=== PATIENT | male | born 1985 | race Caucasian/White ===

== ENCOUNTER 2021-07-06 08:28 | Emergency (ER) | payer SELFPAY ==
--- NOTE | 2021-07-06 09:18 | RAD REPORT ---
EXAM DESCRIPTION: CT - Head Brain Wo Cont - 07/06/2021 9:05 am CLINICAL HISTORY: SYNCOPE COMPARISON: No comparisons TECHNIQUE: All CT scans are performed using dose optimization technique as appropriate and may inclu de automated exposure control or mA/KV adjustment according to patient size. FINDINGS: No intracranial hemorrhage, hydrocephalus or extra-axial fluid collection.No areas of brai n edema or evidence of midline shift. The paranasal sinuses and mastoids are clear. The calvarium is intact. IMPRESSION: No acute intracranial abnormality.
--- NOTE | 2021-07-06 09:28 | RAD REPORT ---
EXAM DESCRIPTION: RAD - Chest Single View - 07/06/2021 9:22 am CLINICAL HISTORY: CHEST PAIN COMPARISON: No comparisons FINDINGS: Lines: None. Lungs: No evidence of edema or pneumonia. Pleural: No significant pleural effusions or pneumothorax. Cardiac: The heart size is within normal limits. Bones: No acute fractures. Other: IMPRESSION: No acute cardiopulmonary disease.
[2021-07-06 09:49] LABS: Absolute Lymphocytes (CBC) 1.7 K/uL (0.7-4.9); Basophils % 0.5 % (0-1.3); Hematocrit 50.4 % (39.6-49.0); Lymphocytes % 17.9 % (15.3-44.8); MPV 7.9 fL (7.6-11.3); RBC Red Blood Cell Count 5.61 M/uL (4.33-5.43)
[2021-07-06 10:02] LABS: Protime INR 1.15
[2021-07-06 10:05] LABS: ALT/SGPT 83 U/L (12-78); AST/SGOT 39 U/L (15-37); Albumin 4.4 g/dL (3.4-5.0); Alkaline Phosphatase 65 U/L (45-117); BUN Blood Urea Nitrogen 10 mg/dL (7-18); Bicarbonate 27 mmol/L (21-32); Bilirubin Direct 0.3 mg/dL (0-0.2); Glucose Level 74 mg/dL (74-106); Magnesium 2.1 mg/dL (1.8-2.4); Potassium 3.3 mmol/L (3.5-5.1); Protein, Total 7.8 g/dL (6.4-8.2); Sodium Level 140 mmol/L (136-145); Troponin (Emerg Dept Use Only) < 0.02 ng/mL (0.0-0.045)
[2021-07-06 10:06] LABS: NT PRO-BNP < 5 pg/mL (<125)
[2021-07-06 10:13] LABS: Urine Blood 1+ (Negative); Urine Glucose Negative (Negative); Urine Protein 3+ (Negative); Urine Specific Gravity >=1.030 (1.005-1.030); Urine pH 6.5 (5.0-7.0)
--- NOTE | 2021-07-06 10:24 | EDPHYS ---
Physician Documentation [facility] Name: Sekou Hyatt Age: 35 yrs Sex: Male : 1985 Arrival Date: 07/06/2021 Time: 08:29 Bed 7 Private MD: ED Physician Obdulia Allen HPI: 07/06 08:51 This 35 yrs old Male presents to ER via EMS with complaints of Syncope. sp3 08:51 35-year-old male with no significant past medical history presents with a syncopal sp3 episode x1 at work today. 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 Patient has no recollection of the incident. Weather outside was cool and patient was not in the heat exhaustion scenario. He does say that he had mild chest pain prior to the event and is the only symptom he has. There was no reported seizure activity, altered mental status, shortness of breath, fever, abdominal pain, nausea, vomiting, diarrhea, decreased food, sick contacts, URI symptoms, numbness, tingling, weakness, any other ROS at this time. Remainder of ROS is negative.. Historical: - Allergies: 08:31 No Known Allergies; bp - Home Meds: 08:31 None [Active]; bp - PMHx: 08:31 Hypertensive disorder; bp - Immunization history:: Adult Immunizations up to date. - Social history:: Smoking status: Patient denies any tobacco usage or history of. ROS: 08:53 Constitutional: Negative for fever, chills, and weight loss, Eyes: Negative for injury, sp3 pain, redness, and discharge, ENT: Negative for injury, pain, and discharge, Neck: Negative for injury, pain, and swelling, Respiratory: Negative for shortness of breath, cough, wheezing, and pleuritic chest pain, Abdomen/GI: Negative for abdominal pain, nausea, vomiting, diarrhea, and constipation, Back: Negative for injury and pain, Skin: Negative for injury, rash, and discoloration, Neuro: Negative for headache, weakness, numbness, tingling, and seizure, Psych: Negative for depression, anxiety, suicide ideation, homicidal ideation, and hallucinations, Allergy/Immunology: Negative for hives, rash, and allergies, Endocrine: Negative for neck swelling, polydipsia, polyuria, polyphagia, and marked weight changes, Hematologic/Lymphatic: Negative for swollen nodes, abnormal bleeding, and unusual bruising. 08:53 All other systems are negative. Exam: 08:53 Constitutional: This is a well developed, well nourished patient who is awake, alert, sp3 and in no acute distress. Head/Face: Normocephalic, atraumatic. Eyes: Pupils equal round and reactive to light, extra-ocular motions intact. Lids and lashes normal. Conjunctiva and sclera are non-icteric and not injected. Cornea within normal limits. Periorbital areas with no swelling, redness, or edema. ENT: Nares patent. No nasal discharge, no septal abnormalities noted. External auditory canals are clear. Oropharynx with no redness, swelling, or masses, exudates, or evidence of obstruction, uvula midline. Mucous membranes moist. Neck: Trachea midline, no thyromegaly or masses palpated, and no cervical lymphadenopathy. Supple, full range of motion without nuchal rigidity, or vertebral point tenderness. No Meningismus. Chest/axilla: Normal chest wall appearance and motion. Nontender with no deformity. No lesions are appreciated. Respiratory: Lungs have equal breath sounds bilaterally, clear to auscultation and percussion. No rales, rhonchi or wheezes noted. No increased work of breathing, no retractions or nasal flaring. Abdomen/GI: Soft, non-tender, with normal bowel sounds. No distension or tympany. No guarding or rebound. No evidence of tenderness throughout. Back: No spinal tenderness. No costovertebral tenderness. Full range of motion. Skin: Warm, dry with normal turgor. Normal color with no rashes, no lesions, and no evidence of cellulitis. MS/ Extremity: Pulses equal, no cyanosis. Neurovascular intact. Full, normal range of motion. Neuro: Awake and alert, GCS 15, oriented to person, place, time, and situation. Cranial nerves II-XII grossly intact. Motor strength 5/5 in all extremities. Sensory grossly intact. Cerebellar exam normal. Normal gait. Psych: Awake, alert, with orientation to person, place and time. Behavior, mood, and affect are within normal limits. 08:53 Cardiovascular: Exam negative for acute changes, arrhythmia, bradycardia, murmur, pulse deficit, Rate: tachycardic, Rhythm: regular, Pulses: no pulse deficits are appreciated. 08:55 ECG was reviewed by the Attending Physician. EKG represents normal sinus rhythm at 100 sp3 bpm with borderline QTC at 503 and S wave in the septal leads. [place] is mildly rightward. Vital Signs: 08:29 BP 156 / 113; Pulse 108; Resp 14; Temp 98.6; Pulse Ox 99% ; Weight 127.01 kg; Height 6 bp ft. 1 in. (185.42 cm); 09:38 BP 141 / 91; Pulse 105; Resp 17; Pulse Ox 99% ; bp 11:14 BP 156 / 98; Pulse 97; Resp 16; Temp 98.5; Pulse Ox 99% ; bp 08:29 Body Mass Index 36.94 (127.01 kg, 185.42 cm) bp MDM: 08:41 Patient medically screened. sp3 08:54 Data reviewed: vital signs, nurses notes. ED course: 35-year-old with syncope. sp3 Differential includes vasovagal episode, cardiac arrhythmia, seizure, neurological pathology, pulmonary embolism (low pretest probability), or trauma. Will obtain CT scan of the head, EKG, laboratory values, and observation. Patient's blood pressure is elevated although he states that he is anxious about being in the hospital. Will follow clinically and not treat at this time until data is acquired.. 10:21 ED course: CT scan and chest x-ray are normal labs are normal with exception of mildly sp3 low potassium which we will orally replenished. LFTs are mildly elevated secondary to likely alcohol use. 4+ ketones in the urine are present therefore likely dehydration as a cause of patient's syncope. Patient has received 1 L normal saline and vital signs are normal. 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 I also told patient he will need a follow-up EKG given his borderline QTC and told him that he should discuss all these things with his primary care physician. He states he does have one but has not seen him in "a long time". Patient will be discharged at this time with the precautions after mentioned. Patient understands if he feels like he is going to pass out again he will need to seek immediate medical treatment and avoid any further work until he is seen.. 07/06 08:50 Order name: Basic Metabolic Panel; Complete Time: 10:20 sp3 07/06 08:50 Order name: CBC with Diff; Complete Time: 10:20 3 07/06 08:50 Order name: LFT's; Complete Time: 10:20 3 07/06 08:50 Order name: Magnesium; Complete Time: 10:20 3 07/06 08:50 Order name: NT PRO-BNP; Complete Time: 10:20 3 07/06 08:50 Order name: PT-INR; Complete Time: 10:20 3 07/06 08:50 Order name: Troponin (emerg Dept Use Only); Complete Time: 10:20 3 07/06 08:50 Order name: XRAY Chest (1 view); Complete Time: 10:20 3 07/06 08:50 Order name: EKG; Complete Time: 08:51 07/06 08:50 Order name: CT Head Brain wo Cont; Complete Time: 10:20 3 07/06 08:57 Order name: D-Dimer 07/06 08:57 Order name: Urine Drug Screen 07/06 10:13 Order name: Urine Dipstick-Ancillary; Complete Time: 10:20 EDMS 07/06 08:50 Order name: Cardiac monitoring; Complete Time: 08:52 07/06 08:50 Order name: EKG - Nurse/Tech; Complete Time: 08:52 07/06 08:50 Order name: IV Saline Lock; Complete Time: 08:52 07/06 08:50 Order name: Labs collected and sent; Complete Time: 08:52 07/06 08:50 Order name: O2 Per Protocol; Complete Time: 08:52 07/06 08:50 Order name: O2 Sat Monitoring; Complete Time: 08:52 07/06 08:58 Order name: Urine Dipstick-Ancillary (obtain specimen); Complete Time: 10:12 3 07/06 09:12 Order name: Labs - recollect needed: recollect all labs; Complete Time: 09:40 bd Administered Medications: 10:30 Drug: Potassium Chloride 40 mEq Route: PO; bp 10:40 Follow up: Response: No adverse reaction bp Point of Care Testing: Blood Glucose: 08:31 Blood Glucose: 78 mg/dL; bp Ranges: Critical Glucose Levels:Adult <50 mg/dl or >400 mg/dl <40 mg/dl or >180 mg/dl Disposition Summary: 07/06/21 10:23 Discharge Ordered Location: Home sp3 Condition: Stable sp3 Diagnosis - Syncope Near sp3 - Dehydration sp3 Followup: sp3 - With: Private Physician - When: As needed - Reason: Discharge Instructions: - Discharge Summary Sheet sp3 - Dehydration, Adult sp3 - Syncope sp3 Forms: - Medication Reconciliation Form sp3 - Thank You Letter sp3 - Antibiotic Education sp3 - Prescription Opioid Use sp3 Signatures: Dispatcher [employer] EDMS Roxana Banks Brian, RN RN Obdulia Jaramillo MD MD sp3 Corrections: (The following items were deleted from the chart) 08:57 08:54 ED course: 35-year-old with syncope. Differential includes vasovagal episode, sp3 cardiac arrhythmia, seizure, neurological pathology, or trauma. Will obtain CT scan of the head, EKG, laboratory values, and observation. Patient's blood pressure is elevated although he states that he is anxious about being in the hospital. Will follow clinically and not treat at this time until data is acquired.. sp3 10:29 10:21 ED course: CT scan and chest x-ray are normal labs are normal with exception of sp3 mildly low potassium which we will orally replenished. LFTs are mildly elevated secondary to likely alcohol use. 4+ ketones in the urine are present therefore likely dehydration as a cause of patient's syncope. Patient has received 1 L normal saline and vital signs are normal. 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 Patient will be discharged at this time.. sp3
--- NOTE | 2021-07-06 10:24 | ER ---
Nurse's Notes [facility] Name: Sekou Hyatt Age: 35 yrs Sex: Male : 1985 Arrival Date: 07/06/2021 Time: 08:29 Bed 7 Private MD: Diagnosis: Syncope Near;Dehydration Presentation: 07/06 08:29 Chief complaint: EMS states: SYNCOPE, FOUND DOWN IN CHANGE ROOM. Coronavirus screen: At bp this time, the client does not indicate any symptoms associated with coronavirus-19. Ebola Screen: No symptoms or risks identified at this time. Initial Sepsis Screen: Does the patient meet any 2 criteria? HR > 90 bpm. No. Patient's initial sepsis screen is negative. Does the patient have a suspected source of infection? No. Patient's initial sepsis screen is negative. Risk Assessment: Do you want to hurt yourself or someone else? Patient reports no desire to harm self or others. Onset of symptoms was July 06, 2021 at 08:00. Care prior to arrival: IV initiated. 20 GA, in the left antecubital area, Glucose check: 78. 08:29 Method Of Arrival: EMS: [facility] bp 08:29 Acuity: CELSA 3 bp Triage Assessment: 08:31 General: Appears in no apparent distress. comfortable, Behavior is cooperative, bp appropriate for age, anxious. Pain: Denies pain. EENT: No deficits noted. Neuro: Level of Consciousness is awake, alert, obeys commands, Oriented to Appropriate for age. Neuro: Reports a syncopal episode. Cardiovascular: Patient's skin is warm and dry. Respiratory: No deficits noted. GI: No signs and/or symptoms were reported involving the gastrointestinal system. : No signs and/or symptoms were reported regarding the genitourinary system. Derm: No deficits noted. Musculoskeletal: No deficits noted. Historical: - Allergies: 08:31 No Known Allergies; bp - Home Meds: 08:31 None [Active]; bp - PMHx: 08:31 Hypertensive disorder; bp - Immunization history:: Adult Immunizations up to date. - Social history:: Smoking status: Patient denies any tobacco usage or history of. Screenin:38 Abuse screen: Denies threats or abuse. Denies injuries from another. Nutritional bp screening: No deficits noted. Tuberculosis screening: No symptoms or risk factors identified. Fall Risk None identified. Assessment: 08:35 General: SEE TRIAGE NOTE. Neuro: Level of Consciousness is awake, alert, obeys bp commands, Oriented to Appropriate for age. Cardiovascular: Rhythm is regular. 09:00 Reassessment: Patient appears in no apparent distress at this time. No changes from bp previously documented assessment. Patient and/or family updated on plan of care and expected duration. Pain level reassessed. Patient is alert, oriented x 3, equal unlabored respirations, skin warm/dry/pink. PT TO CT. 09:39 Reassessment: No changes from previously documented assessment. Patient and/or family bp updated on plan of care and expected duration. Pain level reassessed. Patient is alert, oriented x 3, equal unlabored respirations, skin warm/dry/pink. LABS REDRAWN. 11:13 Reassessment: PT D/C HOME AMBULATORY WITH FAMILY, DX WITH SYNCOPE AND DEHYDRATION. bp Vital Signs: 08:29 BP 156 / 113; Pulse 108; Resp 14; Temp 98.6; Pulse Ox 99% ; Weight 127.01 kg; Height 6 bp ft. 1 in. (185.42 cm); 09:38 BP 141 / 91; Pulse 105; Resp 17; Pulse Ox 99% ; bp 11:14 BP 156 / 98; Pulse 97; Resp 16; Temp 98.5; Pulse Ox 99% ; bp 08:29 Body Mass Index 36.94 (127.01 kg, 185.42 cm) bp ED Course: 08:29 Patient arrived in ED. bp 08:31 Triage completed. bp 08:31 Arm band placed on. bp 08:35 Obdulia Allen MD is Attending Physician. sp3 08:37 Maintain EMS IV. Dressing intact. Good blood return noted. Site clean \T\ dry. Gauge \T\ bp site: 20 GAUGE LEFT AC. 08:38 Patient has correct armband on for positive identification. Bed in low position. Call bp light in reach. Side rails up X2. 08:45 cafeteria monitor on. Pulse ox on. NIBP on. 5 08:45 Initial lab(s) drawn, by me, held in ED. EKG done, by ED staff, reviewed by Obdulia bell MD. 08:52 Basic Metabolic Panel Sent. [facility] 08:52 CBC with Diff Sent. mh5 08:52 LFT's Sent. mh5 08:52 Magnesium Sent. mh5 08:52 NT PRO-BNP Sent. mh5 08:52 PT-INR Sent. 5 08:52 Troponin (emerg Dept Use Only) Sent. mh5 08:59 D-Dimer Sent. mh5 09:04 CT Head Brain wo Cont In Process Unspecified. EDMS 09:07 Abram Das, RN is Primary Nurse. bp 09:22 XRAY Chest (1 view) In Process Unspecified. EDMS 10:12 Urine Drug Screen Sent. mh5 11:13 No provider procedures requiring assistance completed. IV discontinued, intact, bp bleeding controlled, No redness/swelling at site. Pressure dressing applied. Administered Medications: 10:30 Drug: Potassium Chloride 40 mEq Route: PO; bp 10:40 Follow up: Response: No adverse reaction bp Point of Care Testing: Blood Glucose: 08:31 Blood Glucose: 78 mg/dL; bp Ranges: Outcome: 10:23 Discharge ordered by . sp3 11:13 Discharged to home ambulatory, with family. bp 11:13 Condition: stable 11:13 Discharge instructions given to patient, Instructed on discharge instructions, follow up and referral plans. Demonstrated understanding of instructions, follow-up care. 11:15 Patient left the ED. bp Signatures: Dispatcher [employer] Linda Shultz [facility] Abram Das, RN RN bp Obdulia Allen MD MD sp3 Corrections: (The following items were deleted from the chart) 08:39 08:31 Blood Glucose: Blood Glucose Reading=78 mg/dL. bp bp 08:39 08:31 Blood Glucose: Blood Glucose Reading=78 mg/dL. bp bp 08:40 08:31 Blood Glucose: Blood Glucose Reading=78 mg/dL. bp bp
[2021-07-06 10:34] LABS: Barbiturates NEGATIVE (NEGATIVE); Benzodiazepines NEGATIVE (NEGATIVE); Cocaine NEGATIVE (NEGATIVE); METHAMPHETAM POSITIVE (NEGATIVE); Methadone NEGATIVE (NEGATIVE); Opiates NEGATIVE (NEGATIVE); Phencyclidine NEGATIVE (NEGATIVE); THC Cannibis NEGATIVE (NEGATIVE)
[2021-07-06] MEDS ORDERED: POTASSIUM CL SA 10 MEQ TAB PO ONE (11:03)
[2021-07-06 11:20] VITALS: O2SAT 99
[2021-07-06 11:23] VITALS: BP 156/98; TEMP 98.5
--- NOTE | 2021-07-07 16:46 | EKG ---
Test Date: 2021-07-06 Test Time: 08:42:49 Plastic Extruding Machine Operator: AMBER MEASUREMENT RESULTS: Intervals: Rate: 99 IA: 146 QRSD: 100 QT: 392 QTc: 503 [place]: P: 61 IA: 146 QRS: 95 T: 47 INTERPRETIVE STATEMENTS: Normal sinus rhythm Right atrial enlargement Rightward axis Prolonged QT Abnormal ECG No previous ECG available for comparison Electronically Signed On 07-07-21 16:41:28 CDT by Bret Pike
== END 2021-07-06 11:15 | disposition home or self-care (01) ==
LOC: ER 08:28
DX: E86.0 Dehydration (principal); I10 Essential (primary) hypertension
CPT/HCPCS: 36415; 70450; 71045; 80048; 80076; 80307; 81003; 83735; 83880; 84484; 85025; 85379; 85610; 93005; 99284